=== PATIENT | female | born 2000 | race Caucasian/White ===

== ENCOUNTER 2021-12-08 10:31 | Emergency (ER) | payer BC, SELFPAY ==
[2021-12-08 10:41] VITALS: BP 132/90; PULSE 81; RESP 16; TEMP 36.1; O2SAT 100
--- NOTE | 2021-12-08 11:01 | ED_ITS ---
HPI - Headache General Chief Complaint: Headache Stated Complaint: headache, tingle sensation in body History of Present Illness HPI Narrative: This is a 21-year-old female complaining of a headache that is causing nausea dizziness states that she feels like she is going to blackout sometimes and some numbness and tingling that is been severe patient is currently taking Zyrtec for her allergies in which she states she takes daily. Patient informs me she has a primary care doctor and [employer] currently taking control Related Data Home Medications Medication Instructions Recorded Confirmed norgestimate-ethinyl estradiol tablet 12/08/21 0.18 mg/0.215mg/0.25mg-35 mcg(28)tablet Allergies Allergy/AdvReac Type Severity Reaction Status Date / Time No Known Allergies Allergy Verified 12/08/21 10:37 Review of Systems Review of Systems: Headache with light sensitivity nausea All systems reviewed & are unremarkable except as noted in HPI and below Exam Narrative: GENERAL: Ill-appearing, well-nourished, and in no acute distress. HEAD:Normocephalic, EYES: PERRLA ENT: Nares clear, no rhinorrhea or epistaxis. Mucous membranes moist. Pain behind left eye with pressure nasal pressure CHEST: Easy rise and fall of chest wall no respiratory distress. HEART: Regular rate and rhythm. Normal peripheral pulses. ABDOMEN: Soft, nontender, nondistended, normal active bowel sounds. EXTREMITIES: Normal range of motion. No edema. SKIN: Warm, dry, no rash. NEURO: No focal deficits. Alert and oriented x3. Course Course Level of Care: Express Care Visit Vital Signs Vital signs: Vital Signs Temperature 96.9 F L 12/08/21 10:41 Pulse Rate 81 12/08/21 10:41 Respiratory Rate 16 12/08/21 10:41 Blood Pressure 132/90 12/08/21 10:41 Pulse Oximetry 100 12/08/21 10:41 Temperature 96.9 F L 12/08/21 10:41 Pulse Rate 81 12/08/21 10:41 Respiratory Rate 16 12/08/21 10:41 Blood Pressure 132/90 12/08/21 10:41 Pulse Oximetry 100 12/08/21 10:41 MDM - Headache Differential Diagnosis Differential diagnosis: Likely migraine, tension headache, headache and sinusitis Discharge Plan Discharge Clinical Impression: Migraine, Headache, Tension headache Patient Disposition: Home, Self-Care Condition: Stable Instructions: Antibiotic Form, Cluster Headache (ED), Migraine Headache (ED), Acute Headache (ED) Additional Instructions: You need to follow up with your PCP You ALSO NEED TO FOLLOW UP WITH [employer] DRINK PLENTY OF FLUIDS Prescriptions: New sumatriptan succinate [Imitrex] 25 mg tablet 25 mg PO ONCE Qty: 10 0RF ondansetron 4 mg tablet,disintegrating 4 mg PO Q8H PRN (Reason: nausea and vomiting) Qty: 10 0RF No Action norgestimate-ethinyl estradiol 0.18/0.215/0.25 mg-35 mcg (28) tablet Follow-up/Referrals: UNKNOWN,DOCTOR [Primary Care Provider] - Stand Alone Forms: Work/School Release IP Time of Disposition: 11:12
== END 2021-12-08 11:18 | disposition home or self-care (01) ==
PROVIDERS: Emergency Provider Nurse Practitioner Family
DX: G43.909 Migraine, unspecified, not intractable, without status migrainosus (principal); G44.209 Tension-type headache, unspecified, not intractable
CPT/HCPCS: 99213; G0463

== ENCOUNTER 2021-12-30 17:21 | Emergency (ER) | payer BC, SELFPAY ==
--- NOTE | 2021-12-30 17:23 | ED.EAR ---
HPI - Ear Problem General Chief complaint: Ear Stated complaint: rt ear pain and drainage Time Seen by Provider: 12/30/21 17:23 Source: patient Mode of arrival: ambulatory Limitations: no limitations History of Present Illness HPI Narrative: María is a 21-year-old female patient presenting to clinic today with complaints of right ear pain/drainage x1 day. She reports she is having a lot of pressure and pain in her right ear yesterday however that pressure has improved but she has noticed some drainage coming from the right ear. She denies any fever chills Related Data Home Medications Medication Instructions Recorded Confirmed norgestimate-ethinyl estradiol 1 tablet PO DAILY 12/08/21 12/30/21 0.18 mg/0.215mg/0.25mg-35 mcg(28)tablet sumatriptan succinate 25 mg tablet 25 mg PO PRN PRN Migraine Headache 12/30/21 12/30/21 (Imitrex) Allergies Allergy/AdvReac Type Severity Reaction Status Date / Time No Known Allergies Allergy Verified 12/30/21 17:22 Review of Systems Review of Systems: Pertinent positives per HPI. Patient denies any fever, chills, rash, headache, visual changes, dizziness, cough, runny nose, sore throat, shortness of breath, chest pain, palpitations, nausea, vomiting, diarrhea, constipation, abdominal pain, or any urinary issues. PMFSH Comments At the time of my signature, I reviewed and agree with the nursing past medical, surgical, social, and family history. There is no relevant family history pertinent to the patient complaint. Exam Narrative: General: Well-developed, well nourished, in no apparent distress Head: Normocephalic, atraumatic Eyes: Pupils equally round and reactive to light bilaterally, EOM intact, sclera and conjunctive clear, no discharge, lids normal Ears: left TM intact, dull, red, unable to visualize full TM due to right ear canal swelling, TM appears red and bulging but can not determine if it is ruptured- scant amount of whitish discharge in the right ear canal with redness and swelling,left ear canals clear, pain to the right ear with pulling of the pinna as well as palpation over eustachian tube, grossly hearing normal. Nose: Nares patent, clear nasal discharge, no inflammation, no sinus tenderness. Mouth: Oropharynx without lesions or masses, good dentition, MMM. Neck: Supple, trachea midline, no enlargement of anterior or posterior cervical nodes, no thyroid masses or goiter palpable. Cardio: Regular rate and rhythm, s1 and s2 normal, no murmur appreciated. Resp: Clear to auscultation bilaterally anteriorly and posteriorly, no rhonchi, rales, wheezing or rubs Course Course Emergency Course: Portions of this record may have been created with voice recognition software. Level of Care: Express Care Visit Vital Signs Vital signs: Vital signs reviewed Medical Decision Making MDM Narrative Medical decision making narrative: At the time of the patient is resting comfortably on exam table. I suspect the patient has otitis media and otitis externa of the right ear. I cannot rule out ear TM rupture. Prescription for amoxicillin and ofloxacin ear drops were sent to the pharmacy. Supportive measures were discussed with the patient she voiced understanding of discharge instructions and agrees to treatment plan. Differential Diagnosis Differential Diagnosis: Otitis media, otitis externa, eustachian tube dysfunction, upper respiratory infection Discharge Plan Discharge Clinical Impression: Otitis externa Qualifiers: Otitis externa type: diffuse Chronicity: acute Laterality: right Qualified Code(s): H60.311 - Diffuse otitis externa, right ear Otitis media Qualifiers: Otitis media type: suppurative Chronicity: acute Laterality: right Recurrence: non-recurrent Patient Disposition: Home, Self-Care Condition: Stable Instructions: Antibiotic Form, Ruptured Eardrum (ED), How to Use Ear Drops (ED), Ear Infection (ED) Additional Instructions: Take amoxi
[2021-12-30 17:29] VITALS: BP 132/84; PULSE 97; RESP 20; TEMP 37.4; O2SAT 97
== END 2021-12-30 17:37 | disposition home or self-care (01) ==
PROVIDERS: Emergency Provider Nurse Practitioner Family
DX: H60.311 Diffuse otitis externa, right ear (principal); H66.001 Acute suppurative otitis media without spontaneous rupture of ear drum, right ear
CPT/HCPCS: 99213; G0463

== ENCOUNTER 2022-07-31 15:26 | Emergency (ER) | payer BC, SELFPAY ==
[2022-07-31 15:37] VITALS: BP 145/84; PULSE 99; RESP 16; TEMP 37.1; O2SAT 100
--- NOTE | 2022-07-31 15:52 | ED.FEMALEGU ---
HPI - Female Genitourinary General Chief complaint: Urogenital-Female Stated complaint: UTI SYMPTOMS Time Seen by Provider: 07/31/22 15:47 Source: patient and RN notes reviewed Mode of arrival: ambulatory Limitations: no limitations History of Present Illness HPI Narrative: Patient presents today complaining 2 day history of dysuria and urinary frequency. Denies any additional symptoms to include abdominal pain, back pain, hematuria, fever. She took a dose of azo yesterday afternoon with some relief. Denies any recent antibiotic use. Related Data Home Medications Medication Instructions Recorded Confirmed norgestimate-ethinyl estradiol 1 tablet PO DAILY 12/08/21 07/31/22 0.18 mg/0.215mg/0.25mg-35 mcg(28)tablet Allergies Allergy/AdvReac Type Severity Reaction Status Date / Time No Known Allergies Allergy Verified 07/31/22 15:42 Review of Systems Review of Systems: CONSTITUTIONAL: Denies body aches, fever, chills, or sweats. EYES: Denies visual changes, redness, or discharge. ENT: Denies rhinorrhea, congestion, sore throat, or otalgia. CARDIOVASCULAR: Denies chest pain, palpitations, or edema. RESPIRATORY: Denies cough or dyspnea. GASTROINTESTINAL: Denies abdominal pain, nausea, vomiting, or diarrhea. GENITOURINARY: Denies hematuria.+ dysuria, frequency SKIN: Denies rash, itching, or wounds. MUSCULOSKELETAL: Denies back pain, joint pain, or myalgia. NEUROLOGIC: Denies headache, numbness, tingling, or weakness. PSYCH: Denies depression or anxiety. PMFSH Comments At time of signature, I have reviewed and agree with nursing past medical, surgical, social and family history unless otherwise noted. Please see nursing chart for further information. There is no relevant family history pertinent to the presenting complaint Exam Narrative: GENERAL: Well-appearing, well-nourished, and in no acute distress. HEAD: Normocephalic, atraumatic. EYES: EOMI. No redness or drainage. Conjunctivae normal. ENT: Mucous membranes pink and moist. NECK: Normal AROM. CHEST: No respiratory distress. Clear to auscultation. HEART: Regular rate and rhythm. No murmur appreciated. ABDOMEN: Soft, nontender, nondistended, normal active bowel sounds.-CVAT EXTREMITIES: Normal range of motion. No edema. SKIN: Warm, dry, no rash. Capillary refill normal. Normal skin turgor. NEURO: No focal deficits. Alert and oriented x3. Gait steady. PSYCH: Normal affect. No signs of depression or anxiety. Course Course Level of Care: Express Care Visit Vital Signs Vital signs: Vital Signs Temperature 98.7 F 07/31/22 15:37 Pulse Rate 99 07/31/22 15:37 Respiratory Rate 16 07/31/22 15:37 Blood Pressure 145/84 H 07/31/22 15:37 Pulse Oximetry 100 07/31/22 15:37 Temperature 98.7 F 07/31/22 15:37 Pulse Rate 99 07/31/22 15:37 Respiratory Rate 16 07/31/22 15:37 Blood Pressure 145/84 H 07/31/22 15:37 Pulse Oximetry 100 07/31/22 15:37 Reviewed. Pt has been instructed to follow up with her PCP regarding her elevated blood pressure today. MDM - Female Genitourinary MDM Narrative Medical decision making narrative: UA shows infection. Prescription for Keflex sent to pharmacy. Patient also requests prescription for Diflucan. anticipatory guidance given. Differential Diagnosis Differential diagnosis: Likely urinary tract infection, vaginitis, cystitis and other (Pyelonephritis) Lab Data Attestation: I reviewed the patient's lab results. Labs: Urine Glucose Negative Reference Range: Negative Urine Bilirubin Negative Reference Range: Negative Urine Ketone Negative Reference Range: Negative Urine Specific [place] 1.015 Reference Range:1.001-1.035
== END 2022-07-31 16:00 | disposition home or self-care (01) ==
PROVIDERS: Emergency Provider Nurse Practitioner
DX: N30.01 Acute cystitis with hematuria (principal)
CPT/HCPCS: 81003; 87077; 87086; 87186; 99213; G0463